=== PATIENT | female | born 2005 | race Caucasian/White ===

== ENCOUNTER 2023-01-01 10:13 | Emergency (ER) | payer BC, SELFPAY ==
[2023-01-01 10:18] VITALS: BP 121/71; PULSE 76; RESP 16; TEMP 38.1; O2SAT 98; BMI 26.6
--- NOTE | 2023-01-01 10:48 | ED.DIZZY1 ---
HPI - Dizziness General Chief Complaint: Dizziness Stated Complaint: DIZZINESS Time Seen by Provider: 01/01/23 10:48 Source: patient Mode of arrival: walk-in Limitations: no limitations History of Present Illness HPI Narrative: Presents to emergency department complaining of dizziness. Patient states since yesterday feeling dizzy, has a headache, has a fever, nauseated and had one loose stool, and has dysuria. She denies any vaginal bleeding, discharge. She has sore throat and denies any runny nose or ear pain. She has taken Tylenol and Excedrin has not had any relief. She denies any sick contacts in the household. She denies visual disturbance paresthesias, or speech difficulties. Mother was headache of her life time. She has a little cramping but denies pain. Denies any rashes. He denies any neck pain. She complains of diffuse myalgias denies arthralgias. She denies any cough, chest pain, or shortness of breath. Related Data Previous Rx's Medication Instructions Recorded ondansetron HCl 4 mg tablet 4 mg PO Q6H PRN nausea and 01/01/23 vomiting #10 tabs Allergies Allergy/AdvReac Type Severity Reaction Status Date / Time No Known Drug Allergies Allergy Verified 01/01/23 10:18 Review of Systems ROS Status of ROS 10 or more systems reviewed and unremarkable except as noted in history and below Exam Narrative Exam Narrative: Nurses notes and vital signs reviewed and patient is not hypoxic. General: Nontoxic, Well-appearing and in no apparent distress. Skin: Warm, dry, no pallor noted. No Rash Head: Normocephalic, atraumatic. Neck: Supple, non-tender. Eye: Pupils are equal, round and EOMI. No scleral icterus. Ears, Nose, Mouth, and Throat: TM clear, Mild posterior oropharynx erythema, no nasal mucosal hypertrophy, uvula is mid-line Oral mucosa is dry Cardiovascular: Regular Rate and Rhythm without murmur, gallop or rub. Respiratory: No accessory muscle use or respiratory distress. Lungs are clear to auscultation, no wheezing, rales or rhonchi Chest Wall: no tenderness Back: No midline thoracic or lumbar vertebral tenderness. No CVA tenderness Musculoskeletal: normal ROM, no calf or popliteal tenderness, no lower extremity edema/swelling GI: Abdomen is soft, non-distended. Normal bowel sounds. No masses appreciated. No tenderness to palpation. No rebound, guarding, or rigidity noted. Neurological: A&O x4. No cranial nerve dysfunction observed. No truncal ataxia. Moves all extremities. Sensation intact. Psychiatric: Cooperative and interactive. Normal mood and affect. Constitutional Vital Signs - 24 hr 01/01/23 10:18 Temperature 100.5 F H Pulse Rate [Monitor] 76 Respiratory Rate 16 Blood Pressure [Right Arm] 121/71 H Pulse Oximetry 98 Oxygen Delivery Method Room Air Course Vital Signs Vital signs: Vital Signs Temperature 100.5 F H 01/01/23 10:18 Pulse Rate 76 01/01/23 10:18 Respiratory Rate 16 01/01/23 10:18 Blood Pressure 121/71 H 01/01/23 10:18 Pulse Oximetry 98 01/01/23 10:18 Oxygen Delivery Method Room Air 01/01/23 10:18 Temperature 100.5 F H 01/01/23 10:18 Pulse Rate 76 01/01/23 10:18 Respiratory Rate 16 01/01/23 10:18 Blood Pressure 121/71 H 01/01/23 10:18 Pulse Oximetry 98 01/01/23 10:18 Oxygen Delivery Method Room Air 01/01/23 10:18 MDM - Dizziness MDM Narrative Medical decision making narrative: Strep test was done and was negative. Urinalysis was done and is not sure infection but does show dehydration. Patient was given a Zofran ODT she stated she was still feeling nauseated. Advised the patient to have a mono test done and to get an IV given IV fluids. She agreed to. X-ray was ordered. Patient was given a liter normal saline. And 30 mg of Toradol IV. Patient felt better she was able to tolerate by mouth. The results discussed with patient and father. They'll be given a prescription for Zofran to take at home advised port of care at this time. And follow-up with primary care doctor pending cultures. Influenza covert test are pending. At this time the patient is without objective evidence of an acute process requiring hospitalization or inpatient management. The patient has remained hemodynamically stable. No additional indication for emergent studies at this time. I answered all questions. Discussed discharge instructions including standard anticipatory guidance and what should prompt a return to the emergency department, including if they get worse are not getting better or develops any new or concerning symptoms. I've given them specific time frame in which to follow-up, and who to follow-up with. The patient demonstrates understanding. Patient is nontoxic and stable for discharge with outpatient follow-up. This note was created with the assistance of a speech recognition program. Although the intention is to generate documents that actually reflects the content of the visit, no guarantees can be provided that every mistake has been identified and corrected by editing. Lab Data Attestation: I reviewed the patient's lab results. Labs: Lab Results 01/01/23 01/01/23 01/01/23 Range/Units 11:20 11:56 12:46 WBC 2.1 L (4.0-11.0) 10^3/uL RBC 4.48 (4.20-5.40) 10^6/uL Hgb 13.9 (12.0-16.0) g/dL Hct 41.1 (36.0-48.0) % MCV 91.7 (81.0-99.0) fL MCH 31.0 (26.7-34.0) pg MCHC 33.8 (29.9-35.2) g/dL RDW 11.6 (11.0-15.0) % Plt Count 177 (150-450) 10^3/uL MPV 10.1 (9.5-13.5) fL Neut % (Auto) 61.6 (43.0-75.0) % Lymph % (Auto) 19.4 L (20.5-60.0) % [place] % (Auto) 18.0 H (1.7-12.0) % Eos % (Auto) 0.0 L (0.9-7.0) % Baso % (Auto) 0.5 (0.2-2.0) % Neut # (Auto) 1.3 L (1.4-6.5) 10^3/uL Lymph # (Auto) 0.4 L (1.2-3.8) 10^3/uL [place] # (Auto) 0.4 (0.3-0.8) 10^3/uL Eos # (Auto) 0.0 (0.0-0.7) 10^3/uL Baso # (Auto) 0.0 (0.0-0.1) 10^3/uL Abs Immat Gran (auto) 0.01 (0.00-0.03) 10^3/uL Imm/Tot Granulo (auto) 0.5 (0.0-0.5) % Sodium 134 L (136-145) mmol/L Potassium 3.8 (3.5-5.1) mmol/L Chloride 99 (98-107) mmol/L Carbon Dioxide 25.3 (21.0-32.0) mmol/L Anion Gap 13.5 BUN 12.0 (6.4-19.3) mg/dL Creatinine 0.95 (0.55-1.02) mg/dL Est GFR ( Amer) >60 (>=60) Est GFR (Non-Af Amer) >60 (>=60) BUN/Creatinine Ratio 12.6 Glucose 102 (74-106) mg/dL Calcium 8.8 (8.5-10.1) mg/dL Total Bilirubin 0.3 (0.2-1.0) mg/dL AST 24 (15-37) U/L ALT 29 (14-59) U/L Alkaline Phosphatase 92 (46-116) U/L Total Protein 8.1 (6.4-8.2) g/dL Albumin 3.8 (3.4-5.0) g/dL Globulin 4.3 g/dL Albumin/Globulin Ratio 0.9 Urine Color Yellow (YELLOW) Urine Clarity Clear (CLEAR) Urine pH 5.5 (5.0-9.0) Ur Specific [place] >=1.030 A (1.005-1.025) Urine Protein Trace (NEG/TRACE) mg/dL Urine Glucose (UA) Negative (NEGATIVE) mg/dL Urine Ketones 15 A (NEGATIVE) mg/dL Urine Occult Blood Negative (NEGATIVE) Urine Nitrite Negative (NEGATIVE) Urine Bilirubin Negative (NEGATIVE) Urine Urobilinogen 0.2 (0.2-1.0) EU/dL Ur Leukocyte Esterase Negative (NEGATIVE) Urine HCG, Qual Negative (NEGATIVE) Monoscreen Negative (NEGATIVE) Streptococcus Screen Negative Discharge Plan Discharge Chief Complaint: Dizziness Clinical Impression: Acute viral syndrome Patient Disposition: Home, Self-Care Time of Disposition Decision: 13:58 Condition: Good Mode of Transportation: Private Vehicle Prescriptions / Home Meds: New ondansetron HCl 4 mg tablet 4 mg PO Q6H PRN (Reason: nausea and vomiting) Qty: 10 0RF Instructions: Dehydration (ED), Acute Nausea and Vomiting (ED), Viral Syndrome (ED) Stand Alone Forms: Portal Instructions Referrals: Physician,Non-Staff, MD [Primary Care Provider] - 1 week GILDARDO BECKFORD [Physician] - 1 week
[2023-01-01] MEDS: ONDANSETRON 4 MG RAPDIS TABLET SL (11:21)
[2023-01-01 11:34] LABS: Bilirubin Urine NEGATIVE (NEGATIVE); Blood Urine NEGATIVE (NEGATIVE); Clarity Urine CLEAR (CLEAR); Color Urine YELLOW (YELLOW); Glucose Urine UA NEGATIVE (NEGATIVE); Ketones Urine 15 mg/dL (NEGATIVE); Leukocyte Esterase Urine NEGATIVE (NEGATIVE); Nitrite Urine NEGATIVE (NEGATIVE); Protein Urine TRACE mg/dL (NEG/TRACE); Specific Gravity Urine >=1.030 (1.005-1.025); Urobilinogen Urine 0.2 EU/dL (0.2-1.0); pH Urine 5.5 (5.0-9.0)
[2023-01-01 11:35] LABS: Urine Microscopic Indicated NO
[2023-01-01 11:37] LABS: HCG Qualitative Urine* NEGATIVE (NEGATIVE)
[2023-01-01 12:09] LABS: Internal Control Within Normal Limits; Strep A Antigen Screen Negative
--- NOTE | 2023-01-01 12:45 | XR_ITS ---
[address] [address] Patient Name: NIRALI MCCULLOUGH MRN: [id number] date: 2005 Sex: F Assigned Patient Location: ER Current Patient Location: ER Accession/Order Number: [id number] Exam Date: 01/01/2023 13:18 Report Date: 01/01/2023 13:37 At the request of: LUIS CARLOS BRAY Procedure: XR chest 2V EXAMINATION: CHEST RADIOGRAPH (2 VIEW AP/LATERAL) Exam Date/Time: 01/01/2023 1:18 PM EDT Clinical History: fever Comparison: None available FINDINGS: Lines, tubes, and devices: None. Cardiomediastinal silhouette: Heart size within normal limits. Lungs and pleura: No focal consolidation, pleural effusion or pneumothorax. IMPRESSION: No acute cardiopulmonary process. Electronically authenticated by: NAEEM ROLLE Date: 01/01/2023 13:37
[2023-01-01] MEDS: ONDANSETRON PF 4 MG/2 ML VIAL IV (12:57)
[2023-01-01] MEDS: 0.9 % SODIUM CHLORIDE 1,000 ML 999 ML IV (12:57)
[2023-01-01] MEDS: KETOROLAC TROMETHAMINE 30 MG/ML VIAL IVP (12:57)
[2023-01-01 13:26] LABS: Alanine Aminotransferase 29 U/L (14-59); Albumin Globulin Ratio 0.9; Albumin Level 3.8 g/dL (3.4-5.0); Alkaline Phosphatase 92 U/L (46-116); Anion Gap 13.5; Aspartate Amino Transferase 24 U/L (15-37); BUN Creatinine Ratio 12.6; Bilirubin Total 0.3 mg/dL (0.2-1.0); Calcium 8.8 mg/dL (8.5-10.1); Carbon Dioxide 25.3 mmol/L (21.0-32.0); Chloride 99 mmol/L (98-107); Estimated GFR (African America >60 (>=60); Estimated GFR (Non-African Ame >60 (>=60); Globulin 4.3 g/dL; Glucose 102 mg/dL (74-106); Potassium 3.8 mmol/L (3.5-5.1); Sodium 134 mmol/L (136-145); Total Protein 8.1 g/dL (6.4-8.2)
[2023-01-01 13:27] LABS: Basophils Percent Auto 0.5 % (0.2-2.0); Hematocrit 41.1 % (36.0-48.0); Hemoglobin 13.9 g/dL (12.0-16.0); Immature Granulocytes Abs Auto 0.01 10^3/uL (0.00-0.03); Immature Granulocytes Pct Auto 0.5 % (0.0-0.5); Lymphocytes Absolute Auto 0.4 10^3/uL (1.2-3.8); Lymphocytes Percent Auto 19.4 % (20.5-60.0); Mean Corpuscular HGB Conc 33.8 g/dL (29.9-35.2); Mean Corpuscular Volume 91.7 fL (81.0-99.0); Mean Platelet Volume 10.1 fL (9.5-13.5); Monocytes Absolute Auto 0.4 10^3/uL (0.3-0.8); Neutrophils Absolute Auto 1.3 10^3/uL (1.4-6.5); Neutrophils Percent Auto 61.6 % (43.0-75.0); Platelet Count 177 10^3/uL (150-450); Red Blood Count 4.48 10^6/uL (4.20-5.40); Red Cell Distribution Width 11.6 % (11.0-15.0); White Blood Count 2.1 10^3/uL (4.0-11.0)
[2023-01-01 13:36] LABS: Mono Screen NEGATIVE (NEGATIVE)
[2023-01-01 14:22] VITALS: TEMP 38
[2023-01-01 14:43] LABS: Influenza Virus A Antigen Negative; Influenza Virus B Antigen Negative; Internal Control Within Normal Limits
[2023-01-01 14:44] LABS: SARS-CoV-2 Ag Negative (NEGATIVE)
[2023-01-01 15:40] LABS: SARS-CoV-2 NAA NOT DETECTED (NOT DETECTE)
== END 2023-01-01 14:50 | disposition home or self-care (01) ==
PROVIDERS: Emergency Provider Emergency Medicine
DX: B34.9 Viral infection, unspecified (principal); Z20.822 Contact with and (suspected) exposure to COVID-19
CPT/HCPCS: 36415; 71046; 80053; 81003; 84703; 85025; 86308; 87070; 87635; 87804; 87811; 87880; 96374; 96375; 99284; U0003